=== PATIENT | female | born 1995 | race Caucasian/White ===

== ENCOUNTER 2023-03-05 19:23 | Emergency (ER) | payer SELFPAY ==
[2023-03-05 19:33] VITALS: BP 134/85; PULSE 72; RESP 16; TEMP 36.2; O2SAT 100; BMI 39.0
--- NOTE | 2023-03-05 20:02 | ED_ITS ---
HPI - General Adult General Chief complaint: Weakness Stated complaint: Weakness, headache Time Seen by Provider: 03/05/23 20:02 History of Present Illness HPI narrative: Pt reporting for 3 days she has been having pain in back and arms. Weakness in legs and are shaky. Denies that this has happened berfore, today is the worst of the three days . Feels like she has a fever . Stomach pain, hurts when eats . Feels like burning stomach . Diarrhea some yesterday and today a little. Denies vomiting. Has had reflux no meds. Also feels like R arm is swollen, denies travel recently or SOB 28-year-old woman presenting to the emergency department with complaint of many symptoms. Does have sensation of burning or maybe cramping in her upper abdomen. Had been for a time on omeprazole after treatment for H pylori. She thinks last screening about a year ago was negative. Does not feel like she typically struggles with this. Feels generally trembly and weak all over. Has been having some I think upper back pain. No radicular symptoms. No shortness of breath. We had been concerned about fever but does not have a fever here. When I asked her later she denies fever. No melena hematochezia. Feels weak in her extremities as well. A specific concern here as expressed by significant other is the trembling. Does not have a seizure disorder. No exposure to illness. When asked what she might like this to focus on she does discuss the stomach symptoms. Sounds like she is also worried that she might have pancreatitis or other. Has had some headaches intermittently lately as well in the face. Has not been congested apparently. Related Data Home Medications Medication Instructions Recorded Confirmed cyanocobalamin (vitamin B-12) 100 50 mcg PO DAILY 03/05/23 03/05/23 mcg tablet (Vitamin B-12) Previous Rx's Medication Instructions Recorded lorazepam 1 mg tablet 0.5 - 1 mg (0.5 - 1 x 1 mg) PO BID 03/05/23 PRN anxiety #6 tabs omeprazole 40 mg capsule,delayed 40 mg PO DAILY #30 caps 03/05/23 release Allergies Allergy/AdvReac Type Severity Reaction Status Date / Time No Known Drug Allergies Allergy Verified 03/05/23 19:44 Review of Systems Status of ROS: Reports: 6 or more systems reviewed and unremarkable except as noted in History and below [facility] Social History Smoking Status: Never smoker Do you use any of these nicotine containing products: None Second hand tobacco smoke exposure: No How often do you have a drink containing alcohol: never How often do you have six or more drinks on one occasion: Never AUDIT-C Alcohol total score: 0 Non-prescribed substance use: denies use service: No Exam Narrative: Exam Narrative: Pleasant blunted affect. Seems mildly anxious. Cranial nerves 2-12 intact. No facial swelling erythema or tenderness. Breathing easily. Lungs are clear. Heart in a regular rate and rhythm without murmur rub or gallop. Examination of the back is with soreness over the upper bad musculature particularly the rhomboids bilaterally into bilateral trapezial musculature. Neck is supple and nontender otherwise. Moving all extremities without difficulty. Generally mildly uncomfortable to palpation in most areas. Abdomen is overweight soft and a little uncomfortable to palpation in the epigastrium. No masses appreciated. Const: Vital Signs, click to edit/add: Vital Signs - 24 hr 03/05/23 19:33 03/05/23 20:05 Temperature 97.1 F L Pulse Rate [Pulse Oximeter] 72 71 Respiratory Rate 16 18 Blood Pressure [Le ft Upper Arm] 134/85 129/91 H Pulse Oximetry 100 100 Oxygen Delivery Me thod Room Air Room Air Documenting provider has reviewed patient's vital signs: yes Course Vital Signs Vital signs: Initial Vital Signs Temperature 97.1 F L 03/05/23 19:33 Temperature Source Temporal Artery Scan 03/05/23 19:33 Pulse Rate 72 03/05/23 19:33 Respiratory Rate 16 03/05/23 19:33 Blood Pressure 134/85 03/05/23 19:33 Blood Pressure Mean 101 03/05/23 19:33 Blood Pressure Position Sitting 03/05/23 19:33 Pulse Oximetry 100 03/05/23 19:33 Oxygen Delivery Method Room Air 03/05/23 19:33 Vital Signs Temperature 97.1 F L 03/05/23 19:33 Pulse Rate 72 03/05/23 19:33 Respiratory Rate 16 03/05/23 19:33 Blood Pressure 134/85 03/05/23 19:33 Pulse Oximetry 100 07/19/23 19:33 Oxygen Delivery Method Room Air 03/05/23 19:33 Temperature 97.7 F 03/05/23 22:35 Pulse Rate 68 03/05/23 22:35 Respiratory Rate 18 03/05/23 22:35 Blood Pressure 111/67 03/05/23 22:35 Pulse Oximetry 100 03/05/23 22:35 Oxygen Delivery Method Room Air 03/05/23 20:05 Medical Decision Making MDM Narrative Medical decision making narrative: Given the diffuseness of her symptoms I think this is more related to some degree of anxiety. I would trial a dose of lorazepam. Possibly GI cocktail. Check labs though for other concerns. Overall improved with treatment as above. Labs are reassuring with normal CBC, transaminases and CRP See patient discharge plan Lab Data Lab results reviewed: Yes I reviewed the patient's lab results Labs: Lab Results 03/05/23 Range/Units 20:34 WBC 9.25 (4.50-11.00) K/uL RBC 4.30 (4.00-5.20) m/uL Hgb 12.1 (12.0-16.0) gm/dL Hct 36.4 (33.0-51.0) % MCV 85 (80-100) fL MCH 28 (26-34) pg MCHC 33 (32-36) gm/dL RDW Coeff of Lena 13.2 (11.5-15.5) % Plt Count 284 (140-440) K/uL Neut % (Auto) 64.2 (42.0-72.0) % Lymph % (Auto) 26.8 (20-44) % Mchenry % (Auto) 7.4 (0.0-11.0) % Eos % (Auto) 1.4 (0.0-7.0) % Baso % (Auto) 0.1 (0.0-3.0) % Neut # (Auto) 5.94 (1.7-7.0) K/uL Lymph # (Auto) 2.48 (0.90-2.90) K/uL Mchenry # (Auto) 0.70 (0.00-0.90) K/UL Eos # (Auto) 0.13 (0.00-0.50) K/uL Baso # (Auto) 0.01 (0.00-0.30) K/uL Abs Immat Gran (auto) 0.01 (0.00-0.30) K/uL Imm/Tot Granulo (auto) 0.1 % Sodium 139 (135-149) mmol/L Potassium 3.7 (3.6-5.1) mmol/L Chloride 109 (96-114) mmol/L Carbon Dioxide 18 L (20-32) mmol/L BUN 11 (5-24) mg/dL Creatinine 0.7 (0.5-1.5) mg/dL Estimated Creat Clear 99.86 Estimated GFR 121 ml/min Glucose 88 (60-115) mg/dL Calcium 8.6 (8.4-10.6) mg/dL Total Bilirubin 0.3 (0.1-1.5) mg/dL Direct Bilirubin 0.0 (0.0-0.5) mg/dL AST 23 (12-35) U/L ALT 22 (4-35) U/L Alkaline Phosphatase 84 (40-150) U/L C-Reactive Protein < 0.5 L (0.5-1.0) mg/dL Total Protein 7.3 (6.0-8.3) g/dL Albumin 4.0 (3.3-5.0) g/dL Lipase 72 (23-300) U/L Discharge Plan Discharge Clinical Impression: Upper back pain, Anxiety, Epigastric pain Patient Disposition: Home w/ Parent or Adult Condition: Improved Additional Instructions: Generally, stay well-hydrated, get quality and regular sleep and a little heart pumping exercise in daily. See handout on stretches/strengthening exercises for your upper back. Do these once or twice daily for a while. For flares of upper abdominal discomfort, might try liquid antacid/anti-gas that is available [id number]. You might also take 2 weeks of omeprazole and then reassess your symptoms. You can get [id number] dosing of 20 mg and take it twice daily or get this prescription dosing. If you have not been feeling better after this, I would follow-up in primary care to discuss further evaluation. This might include samples looking again for H pylori or an upper endoscopy. Your initial liver testing looks normal today suggesting that your gallbladder is functioning normally at this time. I have written also for a small quantity of lorazepam that you can take if anxiety/trembling seems to be getting out of control. En general, mant?ngase bobbi jamestado, obtenga un harsh?o regular y de calidad y un poco de ejercicio de bombeo card?aco todos los d?as. Barbra el folleto sobre estiramientos / ejercicios de fortalecimiento para la parte superior de la espalda. Maged esto glenn o dos veces al d?a por un tiempo. Para los brotes de malestar abdominal superior, puede probar anti?cido l?quido / anti-gas que est? disponible sin receta. Tambi?n puede kale 2 semanas de omeprazol y luego volver a evaluar mariela s?ntomas. Puede obtener glenn dosis de venta erik de 20 mg y tomarla dos veces al d?a u obtener esta dosis recetada. Si no se camacho sentido mejor despu?s de esto, he?a un seguimiento en la atenci?n primaria para discutir glenn evaluaci?n adicional. [place] podr?a incluir muestras que busquen nuevamente H pylori o glenn endoscopia superior. [place]ozada prueba hep?kylah inicial parece normal hoy, lo que sugiere que lozada ves?cula biliar est? funcionando normalmente en enma momento. Tambi?n he escrito para glenn katerine?a cantidad de lorazepam que puedes kale si la ansiedad / temblor parece estar fuera de control. Prescriptions: New omeprazole 40 mg capsule,delayed release(DR/EC) 40 mg PO DAILY Qty: 30 0RF lorazepam 1 mg tablet 0.5 - 1 mg PO BID PRN (Reason: anxiety) Qty: 6 0RF No Action cyanocobalamin (vitamin B-12) [Vitamin B-12] 100 mcg tablet 50 mcg PO DAILY Follow Up/Referrals: Provider,Not a Local [Primary Care Provider] - Stand Alone Forms: [facility] Info Instructions
[2023-03-05 20:05] VITALS: BP 129/91; PULSE 71; RESP 18; O2SAT 100
[2023-03-05] MEDS: LORazepam 1 MG TABLET PO (20:28)
[2023-03-05] MEDS: MAG HYDROX/ALUMINUM HYD/SIMETH 30 ML ORAL.SUSP PO (20:47)
[2023-03-05 21:11] LABS: Basophils Absolute Auto 0.01 K/uL (0.00-0.30); Basophils Percent Auto 0.1 % (0.0-3.0); Eosinophils Absolute Auto 0.13 K/uL (0.00-0.50); Eosinophils Percent Auto 1.4 % (0.0-7.0); Hematocrit 36.4 % (33.0-51.0); Hemoglobin* 12.1 gm/dL (12.0-16.0); Immature Granulocytes Abs Auto 0.01 K/uL (0.00-0.30); Immature Granulocytes Pct Auto 0.1 %; Lymphocytes Absolute Auto 2.48 K/uL (0.90-2.90); Lymphocytes Percent Auto 26.8 % (20-44); Mean Corpuscular HGB Conc 33 gm/dL (32-36); Mean Corpuscular Hemoglobin 28 pg (26-34); Mean Corpuscular Volume 85 fL (80-100); Monocytes Percent Auto 7.4 % (0.0-11.0); Neutrophils Absolute Auto 5.94 K/uL (1.7-7.0); Neutrophils Percent Auto 64.2 % (42.0-72.0); Platelet Count* 284 K/uL (140-440); RDW Coefficient of Variation % 13.2 % (11.5-15.5); White Blood Count* 9.25 K/uL (4.50-11.00)
[2023-03-05 21:14] LABS: Slide Review Reflex No
[2023-03-05 22:05] LABS: Chloride* 109 mmol/L (96-114); Potassium* 3.7 mmol/L (3.6-5.1); Sodium* 139 mmol/L (135-149)
[2023-03-05 22:07] LABS: Creatinine* 0.7 mg/dL (0.5-1.5); Est. Creatinine Clearance* 99.86; Estimated Glomerular Filt Rate 121 ml/min; Lipase* 72 U/L (23-300)
[2023-03-05 22:08] LABS: Blood Urea Nitrogen* 11 mg/dL (5-24); Calcium* 8.6 mg/dL (8.4-10.6); Carbon Dioxide* 18 mmol/L (20-32); Glucose* 88 mg/dL (60-115)
[2023-03-05 22:09] LABS: Alanine Aminotransferase* 22 U/L (4-35); Alkaline Phosphatase* 84 U/L (40-150); Aspartate Amino Transferase* 23 U/L (12-35); Bilirubin Total* 0.3 mg/dL (0.1-1.5); Total Protein* 7.3 g/dL (6.0-8.3)
[2023-03-05 22:13] LABS: C Reactive Protein* < 0.5 mg/dL (0.5-1.0)
[2023-03-05 22:35] VITALS: BP 111/67; PULSE 68; RESP 18; TEMP 36.5; O2SAT 100
== END 2023-03-05 23:07 | disposition home or self-care (01) ==
PROVIDERS: Emergency Provider Family Medicine
DX: F41.9 Anxiety disorder, unspecified (principal); R10.13 Epigastric pain
CPT/HCPCS: 36415; 80048; 80076; 83690; 85025; 86140; 99283; 99284; A9270

== ENCOUNTER 2024-11-25 14:14 | Outpatient (CLI) | payer MEDICAID, SELFPAY | END 2024-11-25 14:15 | disposition home or self-care (01) | PROVIDERS: PCP Registered Nurse; Visit Provider Registered Nurse | DX: E78.6 Lipoprotein deficiency (principal); M54.9 Dorsalgia, unspecified; M46.1 Sacroiliitis, not elsewhere classified; Z32.00 Encounter for pregnancy test, result unknown | CPT/HCPCS: 80053; 80061; 84702 ==

== ENCOUNTER 2025-01-12 13:00 | Outpatient (RCR) | payer MEDICAID, SELFPAY ==
--- NOTE | 2024-11-15 14:00 | PT.OPEX ---
PT [facility] Outpatient Eval PT [facility] Outpatient Eval Start: 11/15/24 07:48 Freq: Status: Active Protocol: Document 11/15/24 12:57 ENM (Rec: 11/15/24 12:58 ENM [id number]) E-signed By Yeni Bates, DPT Physical Therapy Outpatient Evaluation Insurance Information Recert Due Date 02/13/25 Insurance Name Medicaid Medical Diagnosis sacrococcygeal disorders, not elsewhere classified Treating Diagnosis SIJ pain, difficulty walking, impaired posture, muscle weakness, left and right hip pain, Imaging Report Information Three views of the sacrum and coccyx show no evidence of acute fracture or dislocation. No other bony or soft tissue abnormalities identified. Referring MD Miri Dumont Subjective Subjective Patient presents to PT for complaint of hip and low back pain. The strong pains started about 3 months ago. She had a fall 4 years ago at her apartment where she quickly dropped on her bottom. She understood that her coccyx was injured. That same day she fell again off a table. A year ago she fell again and that bothered her leg. Since the falls the pains have been present but worsened the last couple of months. Has had 2 C sections her kids are 4 and 9 now. It is uncomfortable to get out of a chair and with sitting. She usually can sleep on one side but the last couple of days she couldn't sleep. It can be uncomfortable laying on her back. With standing > 4 hours it will bother her. 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 Also notes intense foot pain when getting up in the morning or after laying. 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 [employer] Objective Other/Pertinent Objective Lumbar AROM FF: slight rounding of lumbar spine (noted that patients knees hyperext while performing) EXT: WNL slight back pain SB: WNL ROT:WNL HIP AROM FLEXION: WNL IR: L 21 R 30 ER: WNL feeling a stretch on R with overpressure + for pain in glutes Strength: hip extensors: 4-/5 B with pain core TA engagement in supine in poor Palpation/Mobilizations: Lumbar spine PAs: normal mobility Sacral PAs: hypermobile + for pain + for pain to palpation of ASIS, PSIS, piriformis, glute max Special tests: ([place] 2/ indicating SIJ involvement) Compression - Distraction + Thigh Thrust + Sacral Thrust + FADIR slight pain Directional Preference: posterior rotation of sacrum Posture: patient with increased lumbar lordosis Other: ++ for pain with transitioning from sitting to standing Assessment Assessment/Impression Patient is a 29 year old female presenting with 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 They have a history for multiple falls on their hips and tailbone with the first one being 4+ years ago. Since then they would have SIJ pains but in the last month this has worsened and also spread to lumbar spine. Past medical history is significant for 2 c -sections. Xray imaging was negative for fracture. Upon assessment patients concordant pains brought on with glute stretching and activation, sacral PAs, transitioning from sitting to standing and SIJ testing. SIJ testing for distraction, thigh and sacral thrust bring on symptoms for the patient. They are tender to palpation along PSIS, ASIS, glutes and piriformis. They seems to respond better to movements with posterior rotation of sacrum vs anterior. They display global core weakness and glute pain as well as weakness. Niya would greatly benefit from skilled PT to address impairments stated above in order to perform all functional mobility and household duties without significant discomfort or difficulty. Primary Functional Limitations sitting, sit to stands, laying , standing for longer periods of time Plan of Care Rehabilitation Potential Good Rehabilitation Potential Comments fair-good due to chronic nature of symptoms Physical Therapy Goals In 7-9 visits: 1. Patient will be IND with HEP and self management of symptoms 2. Patient will be able to comfortably lay at night for improved sleep hygiene 3. Patient will be able to make it through their day with 4/10 or less SIJ pain to progress toward PLOF 4. Patient will improve pain free glute strength to at least 4/5 to better support lumbar spine and pelvis with functional mobility 5. Patient will be able to transition from sit<>stand throughout their day without difficulty or discomfort Coordination/Communication With Referral Source Treatment Plan/Direct Interventions Dry Needling,Gait Training, Heat,Ice/Cold/Vasopneumatic, Joint Mobilization,Manual Therapy,Neuromuscular Re-ed, Self-Care/Home Management, Therapeutic Activities, Therapeutic Exercises Frequency/Duration 1x a week for 7-9 visits Patient Will Be Discharged From Therapy Completion of LTG(s), Independent w/HEP Evaluation Billing Untimed Code Treatment Minutes 34 Complexity Moderate Certification Information Initial Certification Date 11/15/24 Ending Certification Date 02/13/25 Provider Signature Required Yes Provider Signature Shows Agreement With POC & Medical Necessity Physician NPI Number Write NPI# Here Physician Comment/Change : Physician Signature & Date Requested Please Sign/Date Here
== END 2025-05-12 23:59 | disposition home or self-care (01) ==
PROVIDERS: PCP Registered Nurse; Visit Provider Registered Nurse
DX: M53.3 Sacrococcygeal disorders, not elsewhere classified (principal); Z51.89 Encounter for other specified aftercare
CPT/HCPCS: 97110; 97112; 97140; 97162